=== PATIENT | male | born 1990 | race Caucasian/White ===

== ENCOUNTER 2016-11-28 14:57 | Emergency (ER) | payer OTHER ==
[2016-11-28 15:10] VITALS: TEMP 98.8
[2016-11-28] MEDS ORDERED: RX INFO: IV CONTRAST WAS GIVEN 1 EACH MISC MISCELLANE PRN (15:15)
[2016-11-28] MEDS ORDERED: ONDANSETRON 4 MG/2 ML VIAL IVP STA (15:16)
[2016-11-28] MEDS ORDERED: HYDROmorphone 1 MG/ML 1 ML SYRINGE IVP STA (15:16)
--- NOTE | 2016-11-28 15:27 | ED ---
General Adult HPI - General Chief complaint: Fall Stated complaint: fell off ladder/flank pain Time Seen by Provider: 11/28/16 15:25 Source: patient, RN notes reviewed Mode of arrival: ambulatory Limitations: no limitations - History of Present Illness Initial comments: This is a 26-year-old male who presents emergency Department stating that yesterday he was on a ladder with his feet approximate 6 feet in the air when he fell over and landed on the ladder on the left lateral chest wall area patient states he has a lot of chest pain today on that side as well as some left upper quadrant pain. Patient states it hurts take a deep breath but is not short of breath. Patient denies any head trauma or injury to the head. Patient denies any neck pain patient denies any numbness or weakness. Patient denies any lower extremity pain as well. Patient denies any back pain. - Related Data Home Medications Medication Instructions Recorded Confirmed Ibuprofen [Motrin] 800 mg PO ONCE PRN 11/28/16 11/28/16 Previous Rx's Medication Instructions Recorded Hydrocodone/Acetaminophen [[place] 1 each PO Q6HR PRN #15 tab 11/28/16 5-325] Ibuprofen [Motrin] 600 mg PO Q6HR PRN #20 tab 11/28/16 Allergies Allergy/AdvReac Type Severity Reaction Status Date / Time No Known Allergies Allergy Verified 11/28/16 15:36 Review of Systems ROS Statement: Those systems with pertinent positive or pertinent negative responses have been documented in the HPI. ROS Other: All systems not noted in ROS Statement are negative. Past Medical History Past Medical History: No Reported History History of Any Multi-Drug Resistant Organisms: None Reported Past Surgical History: No Surgical Hx Reported Past Psychological History: No Psychological Hx Reported Smoking Status: Current every day smoker Past Alcohol Use History: Occasional Past Drug Use History: Marijuana General Exam - General Exam Comments Initial Comments: GENERAL: Patient is well-developed and well-nourished. Patient is nontoxic and well- hydrated and is in moderate distress. ENT: Neck is soft and supple. No significant lymphadenopathy is noted. Oropharynx is clear. Moist mucous membranes. Neck has full range of motion without eliciting any pain. EYES: The sclera were anicteric and conjunctiva were pink and moist. Extraocular movements were intact and pupils were equal round and reactive to light. Eyelids were unremarkable. PULMONARY: Unlabored respirations. Good breath sounds bilaterally. No audible rales rhonchi or wheezing was noted. CARDIOVASCULAR: There is a regular rate and rhythm without any murmurs gallops or rubs. Lateral left chest wall is extremely tender to touch. ABDOMEN: Patient has some left upper quadrant tenderness. No palpable organomegaly was noted. There is no palpable pulsatile mass. SKIN: Skin is clear with no lesions or rashes and otherwise unremarkable. NEUROLOGIC: Patient is alert and oriented x3. Cranial nerves II through XII are grossly intact. Motor and sensory are also intact. Normal speech, volume and content. Symmetrical smile. MUSCULOSKELETAL: Normal extremities with adequate strength and full range of motion. LYMPHATICS: No significant lymphadenopathy is noted PSYCHIATRIC: Normal psychiatric evaluation. Limitations: no limitations Course Vital Signs 11/28/16 11/28/16 15:06 16:24 Temperature 98.8 F Pulse Rate 84 72 Respiratory 16 18 Rate Blood Pressure 132/84 143/76 O2 Sat by Pulse 98 99 Oximetry Medical Decision Making - Medical Decision Making CT chest CT chest abdomen pelvis showed no acute abnormality. - Lab Data Result diagrams: 11/28/16 15:31 11/28/16 15:31 Lab Results 11/28/16 11/28/16 Range/Units 15:31 15:31 WBC 8.6 (3.8-10.6) k/uL RBC 4.78 (4.30-5.90) m/uL Hgb 15.4 (13.0-17.5) gm/dL Hct 44.3 (39.0-53.0) % MCV 92.7 (80.0-100.0) fL MCH 32.3 (25.0-35.0) pg MCHC 34.8 (31.0-37.0) g/dL RDW 13.3 (11.5-15.5) % Plt Count 317 (150-450) k/uL Neutrophils % 67 % Lymphocytes % 23 % Monocytes % 5 % Eosinophils % 2 % Basophils % 1 % Neutrophils # 5.8 (1.3-7.7) k/uL Lymphocytes # 2.0 (1.0-4.8) k/uL Monocytes # 0.4 (0-1.0) k/uL Eosinophils # 0.2 (0-0.7) k/uL Basophils # 0.1 (0-0.2) k/uL Sodium 144 (137-145) mmol/L Potassium 4.1 (3.5-5.1) mmol/L Chloride 107 (98-107) mmol/L Carbon Dioxide 25 (22-30) mmol/L Anion Gap 12 mmol/L BUN 15 (9-20) mg/dL Creatinine 0.94 (0.66-1.25) mg/dL Est GFR (MDRD) Af Amer >60 (>60 ml/min/1.73 sqM) Est GFR (MDRD) Non-Af >60 (>60 ml/min/1.73 sqM) Glucose 80 (74-99) mg/dL Calcium 10.1 (8.4-10.2) mg/dL Total Bilirubin 0.9 (0.2-1.3) mg/dL AST 21 (17-59) U/L ALT 30 (21-72) U/L Alkaline Phosphatase 68 (38-126) U/L Total Protein 7.7 (6.3-8.2) g/dL Albumin 4.8 (3.5-5.0) g/dL Disposition Clinical Impression: Chest wall contusion Disposition: HOME SELF-CARE Condition: Good Instructions: Chest Wall Pain (ED) Prescriptions: Hydrocodone/Acetaminophen [[place] 5-325] 1 each PO Q6HR PRN #15 tab PRN Reason: Pain Ibuprofen [Motrin] 600 mg PO Q6HR PRN #20 tab PRN Reason: For pain Referrals: None,Stated [Primary Care Provider] - 1-2 days Time of Disposition: 16:31
[2016-11-28 15:49] LABS: Basophils # (A) 0.1 k/uL (0-0.2); Basophils % (A) 1 %; CH 31.8; CHCM 34.4; Eosinophils # (A) 0.2 k/uL (0-0.7); Eosinophils % (A) 2 %; HCT 44.3 % (39.0-53.0); HDW 2.35; HGB 15.4 gm/dL (13.0-17.5); Luc # (Auto) 0.14; Luc % (Auto) 2; Lymphocytes % (A) 23 %; MCH 32.3 pg (25.0-35.0); MCHC 34.8 g/dL (31.0-37.0); MCV 92.7 fL (80.0-100.0); Mean Platelet Volume 6.7; Monocytes # (A) 0.4 k/uL (0-1.0); Monocytes % (A) 5 %; Neutrophils # (A) 5.8 k/uL (1.3-7.7); Neutrophils % (A) 67 %; RBC 4.78 m/uL (4.30-5.90); RDW 13.3 % (11.5-15.5); WBC 8.6 k/uL (3.8-10.6); WBC (Perox) 8.72
[2016-11-28 15:54] LABS: ALT 30 U/L (21-72); AST 21 U/L (17-59); Alkaline Phosphatase 68 U/L (38-126); Anion Gap 12 mmol/L; Blood Urea Nitrogen 15 mg/dL (9-20); Calcium 10.1 mg/dL (8.4-10.2); Carbon Dioxide 25 mmol/L (22-30); Chloride 107 mmol/L (98-107); Glucose 80 mg/dL (74-99); Non-African American GFR(MDRD) >60 (>60 ml/min/1.73 sqM); Potassium 4.1 mmol/L (3.5-5.1); Sodium 144 mmol/L (137-145); Total Bilirubin 0.9 mg/dL (0.2-1.3); Total Protein 7.7 g/dL (6.3-8.2)
--- NOTE | 2016-11-28 16:14 | CT ---
EXAMINATION TYPE: CT ChestAbdPelvis w con DATE OF EXAM: 11/28/2016 COMPARISON: NONE HISTORY: Fall injury. Left side chest pain. CT DLP: 1919 mGycm CONTRAST: Contrast enhanced Trauma CT of the Chest, Abdomen and Pelvis is performed with IV Contrast, patient i njected with 100 mL of Omnipaque 300. Chest: LUNGS: There is no evidence for pneumothorax. The lungs are clear and free of focal contusion or ate lectasis. No pleural effusion MEDIASTINUM: Thoracic aorta is of normal caliber without CT evidence to suggest traumatic induced ao rtic injury. No mediastinal fluid or blood. No pericardial fluid or cardia abnormality. HILAR STRUCTURES: No evidence for mass. No hilar adenopathy is appreciated. OTHER: No significant abnormality. OSSEOUS: No displaced osseous fractures identified. CT ABDOMEN AND PELVIS FINDINGS: LIVER/GB: No focal laceration, contusion or subcapsular hemorrhage. No calcified gallstones. No s pace occupying hepatic lesion. Biliary tree is of normal caliber. PANCREAS: No evidence for transection. No inflammation. No distinct mass. SPLEEN: No focal laceration, contusion or subcapsular hemorrhage. ADRENALS: No hemorrhage. No nodule. No thickening. KIDNEYS/BLADDER: No focal laceration, contusion or subcapsular hemorrhage. No hydronephrosis. No n ephrolithiasis. No disctinct renal mass. BOWEL: Bowel is intact. No evidence for pneumoperitoneum. GENITAL ORGANS: No gross abnormality. LYMPH NODES: No greater than 1cm abdominal or pelvic lymph nodes areappreciated. AORTA: No traumatic aortic injury visualized. OSSEOUS STRUCTURES: No displaced fracture seen. OTHER: No evidence for hemoperitoneum. IMPRESSION: 1. No evidence for traumatic injury to the chest. 2. No evidence for traumatic injury to the abdomen or pelvis.
[2016-11-28] MEDS ORDERED: KETOROLAC 60 MG/2 ML VIAL IVP STA (16:22)
[2016-11-28 16:25] VITALS: RESP 18
[2016-11-28 17:15] VITALS: BP 139/75; PULSE 66
== END 2016-11-28 17:10 | disposition home or self-care (01) ==
LOC: EC 14:57
DX: S20.212A Contusion of left front wall of thorax, initial encounter (principal); F17.200 Nicotine dependence, unspecified, uncomplicated; W11.XXXA Fall on and from ladder, initial encounter
CPT/HCPCS: 36415; 80053; 85025; 71260; 74177; 99284; 96374; 96375 ×2; J2405; J1885; J1170; Q9967

== ENCOUNTER 2017-12-12 12:23 | Emergency (ER) | payer OTHER ==
[2017-12-12 12:32] VITALS: TEMP 98.5
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
[2017-12-12 14:05] VITALS: BP 109/62; PULSE 70; RESP 16
== END 2017-12-12 14:05 | disposition home or self-care (01) ==
LOC: EC 12:23
DX: S86.911A Strain of unspecified muscle(s) and tendon(s) at lower leg level, right leg, initial encounter (principal); F17.200 Nicotine dependence, unspecified, uncomplicated; V86.56XA Driver of dirt bike or motor/cross bike injured in nontraffic accident, initial encounter; Y93.I9 Activity, other involving external motion; Y92.89 Other specified places as the place of occurrence of the external cause
CPT/HCPCS: 73552; 73590; 73562; 99283; L1830